=== PATIENT | female | born 1945 | race Caucasian/White ===

== ENCOUNTER 2016-06-21 08:07 | Day surgery (SDC) | payer OTHER ==
[2016-06-21] MEDS ORDERED: LIDOCAINE 2% MDV (20MG/ML) 20ML VIAL IV ONE (15:35)
[2016-06-21] MEDS ORDERED: PROPOFOL 10 MG/ML VIAL IV ONE (15:35)
--- NOTE | 2016-06-22 14:20 | Operative Note ---
DATE OF SURGERY: 06/21/2016 OPERATION: COLONOSCOPY to the cecum with cold biopsy forceps polypectomy x2. INDICATION: Episodic rectal bleeding. The patient reports that she has bright red rectal bleeding lasting approximately a day and a half. This occurs very infrequently. She has had this in the past and this was attributed to hemorrhoids years ago. She returns at this time for reevaluation via colonoscopy. ANESTHESIA: Intravenous sedation was administered by the department of anesthesiology and included Diprivan titrated to effect. PROCEDURE: Following informed consent from this alert individual including a discussion of the risks and benefits of the procedure and an opportunity for the patient to ask questions, the patient was in the left lateral decubitus position. A digital rectal examination was performed. No abnormalities were detected other than external hemorrhoids noted. Following this, the Olympus XVQ261 video colonoscope was inserted into the rectum without resistance. The rectal mucosa had a normal appearance with normal folds and distensibility. The colonoscope was advanced up through the colon to the level of the cecum without much difficulty. Throughout the bowel the mucosa appeared normal, the folds were normal, and the bowel was fairly well distensible. The colon preparation was good. The cecum was defined by noting the appendiceal orifice and ileocecal valve. Retroflexion in the cecum was endoscopically unremarkable. The endoscope was withdrawn. Again diverticulosis was noted in the sigmoid colon. No other changes were noted until the rectum was reached. Within the rectum, there were 2 diminutive distal rectal polyps noted measuring 2-3 mm in size. Each was removed with application of cold biopsy forceps. Retroflexion in the rectum revealed small internal hemorrhoids. The endoscope was then straightened and withdrawn. Moderate-sized external hemorrhoids were also noted. The instrument was removed. The patient tolerated the procedure well and was returned to the recovery area in stable condition. IMPRESSION: 1. Two diminutive rectal polyps removed with biopsy forceps. 2. Sigmoid diverticulosis. 3. Internal and external hemorrhoids. RECOMMENDATIONS: The patient was advised to use hemorrhoidal cream as needed if the bleeding should persist. She was also advised to continue to use MiraLax on a daily basis to facilitate soft stools. She can also use milk of magnesia if needed. Followup will be with Dr. Chuckie Garcia. As always, thank you for allowing me to participate in the care of your patient. Sal Ortiz DO CC: Priya JIM
== END 2016-06-21 09:00 | disposition home or self-care (01) ==
LOC: HOP 08:07
PROVIDERS: ATTEND Internal Medicine Gastroenterology
DX: K62.1 Rectal polyp (principal); I10 Essential (primary) hypertension; E78.00 Pure hypercholesterolemia, unspecified; M81.0 Age-related osteoporosis without current pathological fracture

== ENCOUNTER 2016-10-05 16:00 | Inpatient (IN) | payer OTHER ==
[2016-10-14] MEDS ORDERED: FAMOTIDINE 20MG TABLET PO ONE (06:00)
[2016-10-14] MEDS ORDERED: CEFAZOLIN 2 Gram 2 GM/50 ML BAG IVPB ONE (06:00)
[2016-10-14] MEDS ORDERED: CELECOXIB 100 MG CAPSULE PO ONE (06:00)
[2016-10-14] MEDS ORDERED: MECLIZINE 25 MG TABLET PO ONE (06:00)
[2016-10-14] MEDS ORDERED: ACETAMINOPHEN 1,000 MG/100 ML BTL IV ONE (06:00)
[2016-10-14] MEDS ORDERED: METOCLOPRAMIDE 10 MG TABLET PO ONE (06:00)
[2016-10-14] MEDS: IPRATROPIUM/ALBUTEROL (0.5MG/3MG) NEB INH PRN (11:34)
[2016-10-14] MEDS ORDERED: AL HYDROX/MAG HYDROX 30ML UD PO PRN (12:30)
[2016-10-14] MEDS ORDERED: METOCLOPRAMIDE HCL 10 MG/2 ML VIAL IVP PRN (12:30)
[2016-10-14] MEDS ORDERED: MAGNESIUM HYDROXIDE 30 ML UDC PO PRN (12:30)
[2016-10-14] MEDS ORDERED: SENNOSIDES/DOCUSATE SODIUM UD CAPSULE PO PRN (12:30)
[2016-10-14] MEDS ORDERED: OXYCODONE HCL 5 MG TABLET PO PRN (12:30)
[2016-10-14] MEDS ORDERED: TRAMADOL HCL 50 MG TABLET PO PRN (12:30)
[2016-10-14] MEDS: DIPHENHYDRAMINE HCL 25 MG CAPSULE PO PRN (12:34)
[2016-10-14] MEDS: RINGERS SOLUTION,LACTATED 1,000 ML IV SCH (12:34)
[2016-10-14] MEDS: OXYCODONE HCL 5 MG TABLET PO PRN ×2 (12:41→20:13)
[2016-10-14] MEDS ORDERED: TRANEXAMIC ACID 1,000 MG in 0.9 % SODIUM CHLORIDE 100ML 100 ML IVPB ONE (13:00)
[2016-10-14] MEDS: PATIENT OWN MED: RALOXIFENE 60 MG PO SCH (13:12)
[2016-10-14] MEDS: TRAMADOL HCL 50 MG TABLET PO PRN (13:55)
[2016-10-14] MEDS: ACETAMINOPHEN 1,000 MG/100 ML BTL IV SCH ×2 (14:32→21:30)
[2016-10-14] MEDS ORDERED: PROPOFOL 10 MG/ML VIAL IV ONE (15:06)
[2016-10-14] MEDS ORDERED: DIPHENHYDRAMINE HCL IV 50 MG/ML VIAL IVP ONE (15:06)
[2016-10-14] MEDS ORDERED: BUPIVACAINE 0.25% W/EPI MPF 30ML VIAL IVP ONE (15:06)
[2016-10-14] MEDS ORDERED: TRANEXAMIC ACID 1,000 MG/10 ML ML IV ONE (15:06)
[2016-10-14] MEDS ORDERED: MIDAZOLAM HCL 2MG/2ML VIAL IV ONE (15:06)
[2016-10-14] MEDS ORDERED: BUPIVACAINE LIPOSOME 266MG/20ML VIAL IV ONE (15:06)
[2016-10-14] MEDS ORDERED: FENTANYL PF 100MCG/2ML VIAL IV ONE (15:06)
[2016-10-14] MEDS ORDERED: LIDOCAINE 2% MDV (20MG/ML) 20ML VIAL IV ONE (15:06)
[2016-10-14] MEDS: ONDANSETRON HCL IV 4 MG/2 ML VIAL IVP PRN ×2 (15:51→20:13)
[2016-10-14] MEDS: HYDROMORPHONE HCL 1 MG/ML CPJ IVP PRN ×5 (15:51→21:20)
[2016-10-14] MEDS: CEFAZOLIN 2 Gram 2 GM/50 ML BAG IVPB SCH (16:41)
--- NOTE | 2016-10-14 18:36 | Rehab Evaluation ---
Patient Information - Patient Information Diagnosis: L TKA ON 10/14/16 Secondary to O-A. Ordered Treatment: PT Evaluate and Treat Status: Initial Evaluation Surgery: Yes (TKA-L 10/14/16) History: Detail (Progressive hx of knee pain with final dx of severe O-A.) Past Med/Aiden Hx Detail: Detail Past Medical/Surgical Hx: PAST MEDICAL/SURGICAL HISTORY Past Surgical History HYSTERECTOMY, LEFT FOOT X3, PMH - Respiratory Hx Respiratory Disorders Yes Hx Asthma No Hx Bronchitis Yes: none recently Hx Chronic Obstructive Yes: quit smoking 1990 Pulmonary Disease (COPD) Hx Dyspnea Yes Hx Pneumonia Yes: once years ago Hx Pulmonary Embolism No Hx Sleep Apnea No Hx Tuberculosis No Hx of CPAP No Hx of SOB Yes: just on exertion PMH - Cardiovascular Hx Cardiovascular Disorders Yes Hx Abnormal EKG No Hx Cardiac Catheterization No Hx Chest Pain No Hx Congestive Heart Failure No Hx Deep Vein Thrombosis No Hx Edema No Hx Heart Attack No Hx Hypertension Yes Hx Hypotension No Hx Irregular Heartbeat No Hx Palpitations No Hx Pacemaker/Defibrillator No Hx Vascular Disease No Exercise Tolerance Good Hx Transient Ischemic Attacks No (TIA) Comment: HIGH CHOLESTEROL PMH - Neuro Hx Neurological Disorders Yes Hx Brain Tumor No Hx Cerebrovascular Accident No Hx Dementia No Hx Dizziness Yes: vertigo with lying down Hx Headaches No Hx Neuropathy No Hx Parkinson's Disease No Hx Seizures No Hx Speech Problem No Hx Syncope No Hx Transient Ischemic Attacks No (TIA) Hx Weakness Yes: lt knee-gives out PMH - GI Hx Gastrointestinal Disorders Yes Hx Abdominal Pain No Hx Celiac Disease No Hx Crohn's Disease No Hx Diverticulitis No Hx Gastrointestinal Bleed No Hx Gastroesophageal Reflux No Hx Hepatitis/Jaundice No Hx Hiatal Hernia No Hx Irritable Bowel No Hx Liver Disease No Hx Nausea/Vomiting No Hx Obstructive Bowel No Hx Pancreatitis No Hx Rectal Bleeding Yes: hemmorrhoid Hx Ulcer No Hx Weight Loss/Weight Gain No Comment: constipation-takes Miralax PMH - Hx Genitourinary Disorders No PMH - Endocrine Hx Endocrine Disorders No PMH - Musculoskeletal Hx Musculoskeletal Disorders Yes Hx Arthritis Yes Hx Back Injury No Hx Fibromyalgia No Hx Gout No Hx Musculoskeletal Disease No Comment: BURSITIS LEFT HIP PMH - Psych Hx Psychiatric Problems No PMH - Hematology/Oncology Hx Hematology/Oncology Yes Disorders Hx Anemia No Hx Blood Disorders No Hx Bruising No Hx Cancer No Hx Chemotherapy No Hx Radiation Therapy No Hx Clotting Problems No Hx Sickle Cell Disease No Hx Unexplained Bleeding No Hx Blood Transfusion Reaction No Premorbid Status: Detail (No c/o limitations prior to the onset of this arthritis.) Social History: Detail (70 y/o female, lives in single family home 3-4 steps to enter [place] with rail on right going up then 2 steps to threshold of house. she reports they usually take her in from there with wheelchair.) Precautions: [place], Other (for joint replacement.) - Time With Patient Total Time Spent With Patient (Min): 55 Treatment Procedures: Detail (evaluation, bed mobility, transfers, total joint exercises,walker adjusted walker use education.) Subjective Information - Subjective Information Per Patient (pt is awake, alert, cooperative for evaluation. even with pain meds still in great del of pain and vomiting.) Objective Data - Pain Pain Present: Yes Pain Intensity: 8 Pain Scale Used: Numeric (1 - 10) - Mental Status Patient Orientation: Oriented x3 - Visual Perception Appears within normal limits for therapeutic activities - ROM Within normal limits (all joints except R knee. N/A secondary to surgery.) - Strength/Tone Within normal limits (all limbs except RLE) - Coordination Appears within normal limits for therapeutic activities - Bed Mobility Needs Assist (Secondary to surgery.) - Transfers Needs Assist (of walker and CG assist of two.) - Balance Balance Sitting: Good Balance Standing: Fair (with use of walker.) - Sensation Intact - Gait Detail (standing pivot transfer to comode.) - ADL's/IADL's Detail (N/A) - Special Tests No Therapy Assessment - Therapy Assessment Detail (Pain level initially interfered with PT once pt was given additional pain meds and antinausea meds she handled things better.) Patient Education - Patient Education Teaching Topic: Equipment Use, Precautions Response: Return Demonstration Teaching Method: Discussion, Demonstration Teaching Recipient: Patient Barriers To Learning: None Problem List - Problem List Physical Therapy Problem List: Detail (dependent mobility all areas (bed, transfers, ambulation).) Goals - Goals Physical Therapy Goals: Independent bed and transfer mobility with standard or 2ww, and ambulation with same, household and short community distances, level surfaces and stairs. Independent with beginning HEP and knee precautions reguarding knee care/safty. Prognosis - Prognosis Good Plan - Plan Physical Therapy Plan: PT X 1 OP DAY, 2 X 1st POSTOP DAY AND IF NEEDED 1 ADDITIONAL VISIT POSTOP DAY 2(if needed to achieve goals)PRIOR TO DISCHARGE.
[2016-10-14] MEDS: POLYETHYLENE GLY 17 GM PACKET PO SCH (21:25)
[2016-10-14] MEDS: ASPIRIN 325 MG TAB ENTERIC-COATED PO SCH (21:26)
[2016-10-14] MEDS: METOPROLOL SUCCINATE 25 MG PO SCH (21:27)
[2016-10-14] MEDS: PATIENT OWN MED: PRAVASTATIN 40 MG PO SCH (21:27)
[2016-10-15] MEDS: HYDROMORPHONE HCL 1 MG/ML CPJ IVP PRN ×4 (01:15→07:47)
[2016-10-15] MEDS: OXYCODONE HCL 5 MG TABLET PO PRN ×2 (01:20→07:45)
[2016-10-15] MEDS: CEFAZOLIN 2 Gram 2 GM/50 ML BAG IVPB SCH ×2 (01:25→09:23)
[2016-10-15] MEDS: ACETAMINOPHEN 1,000 MG/100 ML BTL IV SCH (03:19)
[2016-10-15] MEDS: DIPHENHYDRAMINE HCL 25 MG CAPSULE PO PRN (03:45)
[2016-10-15 06:23] LABS: HEMATOCRIT 42.1 % (35.0-47.0); HEMOGLOBIN 13.7 gm/dl (11.6-16.0); MEAN CELL VOLUME 98.4 fl (81-97); MEAN CORPUSCULAR HGB CONC 32.5 g/dl (32-36); MEAN PLATELET VOLUME 11.3 fl (7.4-10.4); PLATELET COUNT 186 K/uL (130-400); RED BLOOD COUNT 4.28 M/uL (3.80-5.40); RED CELL DISTRIBUTION WIDTH 12.6 % (11.5-14.5); WHITE BLOOD COUNT W/O DIFF 12.6 K/uL (4.2-12.2)
--- NOTE | 2016-10-15 09:18 | Rehab Evaluation ---
Patient Information - Patient Information Diagnosis: L TKA ON 10/14/16 Secondary to O-A. Ordered Treatment: OT Evaluate and Treat Status: Initial Evaluation Surgery: Yes (TKA-L 10/14/16) History: Detail (Progressive hx of knee pain with final dx of severe O-A.) Past Med/Aiden Hx Detail: Detail Past Medical/Surgical Hx: PAST MEDICAL/SURGICAL HISTORY Past Surgical History HYSTERECTOMY, LEFT FOOT X3, PMH - Respiratory Hx Respiratory Disorders Yes Hx Asthma No Hx Bronchitis Yes: none recently Hx Chronic Obstructive Yes: quit smoking 1990 Pulmonary Disease (COPD) Hx Dyspnea Yes Hx Pneumonia Yes: once years ago Hx Pulmonary Embolism No Hx Sleep Apnea No Hx Tuberculosis No Hx of CPAP No Hx of SOB Yes: just on exertion PMH - Cardiovascular Hx Cardiovascular Disorders Yes Hx Abnormal EKG No Hx Cardiac Catheterization No Hx Chest Pain No Hx Congestive Heart Failure No Hx Deep Vein Thrombosis No Hx Edema No Hx Heart Attack No Hx Hypertension Yes Hx Hypotension No Hx Irregular Heartbeat No Hx Palpitations No Hx Pacemaker/Defibrillator No Hx Vascular Disease No Exercise Tolerance Good Hx Transient Ischemic Attacks No (TIA) Comment: HIGH CHOLESTEROL PMH - Neuro Hx Neurological Disorders Yes Hx Brain Tumor No Hx Cerebrovascular Accident No Hx Dementia No Hx Dizziness Yes: vertigo with lying down Hx Headaches No Hx Neuropathy No Hx Parkinson's Disease No Hx Seizures No Hx Speech Problem No Hx Syncope No Hx Transient Ischemic Attacks No (TIA) Hx Weakness Yes: lt knee-gives out PMH - GI Hx Gastrointestinal Disorders Yes Hx Abdominal Pain No Hx Celiac Disease No Hx Crohn's Disease No Hx Diverticulitis No Hx Gastrointestinal Bleed No Hx Gastroesophageal Reflux No Hx Hepatitis/Jaundice No Hx Hiatal Hernia No Hx Irritable Bowel No Hx Liver Disease No Hx Nausea/Vomiting No Hx Obstructive Bowel No Hx Pancreatitis No Hx Rectal Bleeding Yes: hemmorrhoid Hx Ulcer No Hx Weight Loss/Weight Gain No Comment: constipation-takes Miralax PMH - Hx Genitourinary Disorders No PMH - Endocrine Hx Endocrine Disorders No PMH - Musculoskeletal Hx Musculoskeletal Disorders Yes Hx Arthritis Yes Hx Back Injury No Hx Fibromyalgia No Hx Gout No Hx Musculoskeletal Disease No Comment: BURSITIS LEFT HIP PMH - Psych Hx Psychiatric Problems No PMH - Hematology/Oncology Hx Hematology/Oncology Yes Disorders Hx Anemia No Hx Blood Disorders No Hx Bruising No Hx Cancer No Hx Chemotherapy No Hx Radiation Therapy No Hx Clotting Problems No Hx Sickle Cell Disease No Hx Unexplained Bleeding No Hx Blood Transfusion Reaction No Premorbid Status: Detail (No c/o limitations prior to the onset of this arthritis. 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 she reports family usually takes her in from there with wheelchair. Pt has her son and [id number] living with her who will be available to assist as needed and provide meals.) Precautions: [place], Other (for joint replacement.) - Time With Patient Total Time Spent With Patient (Min): 15 Treatment Procedures: Detail (OT eval LOW) Subjective Information - Subjective Information Per Patient Objective Data - Pain Pain Present: Yes Pain Intensity: 2 (L knee) Pain Scale Used: Numeric (1 - 10) - Mental Status Patient Orientation: Oriented x3 - Visual Perception Appears within normal limits for therapeutic activities - ROM Within normal limits (BUE's) - Strength/Tone Within normal limits (BUE's grossly 4+ to 5/5.) - Coordination Appears within normal limits for therapeutic activities - ADL's/IADL's Detail (Discussed wrapping techniques to L knee to prevent water saturation to surgical site during showering. Pt verbalized understanding. Pt has a shower bench. She will sponge bath for the first few days. Pt falling asleep during eval and not wanting to dress at this time. Discussed equipment available should she have difficulty don/doff pants/underpants due to limited ROM L knee. Pt will contact OT should she have any questions.) Therapy Assessment - Therapy Assessment Detail (Pt falling asleep during eval. Pt able to verbalize understanding of dressing and bathing techniques. She will contact OT if any questions arise in the futher. No futher inpatient OT anticipated at this time.) Patient Education - Patient Education Teaching Topic: Equipment Use, Precautions Response: Verbalize Understanding Teaching Method: Discussion Teaching Recipient: Patient Barriers To Learning: None Problem List - Problem List Physical Therapy Problem List: Detail (dependent mobility all areas (bed, transfers, ambulation).) Goals - Goals Physical Therapy Goals: Independent bed and transfer mobility with standard or 2ww, and ambulation with same, household and short community distances, level surfaces and stairs. Independent with beginning HEP and knee precautions reguarding knee care/safty. Prognosis - Prognosis Good Plan - Plan Physical Therapy Plan: PT X 1 OP DAY, 2 X 1st POSTOP DAY AND IF NEEDED 1 ADDITIONAL VISIT POSTOP DAY 2(if needed to achieve goals)PRIOR TO DISCHARGE. Occupational Therapy Plan: No further inpatient OT anticipated at this time.
[2016-10-15] MEDS: RINGERS SOLUTION,LACTATED 1,000 ML IV SCH ×2 (10:31→23:21)
[2016-10-15] MEDS: ACYCLOVIR 400 MG PO SCH (11:47)
[2016-10-15] MEDS: ASPIRIN 325 MG TAB ENTERIC-COATED PO SCH ×2 (11:47→23:25)
[2016-10-15] MEDS: AMLODIPINE PO SCH (11:48)
[2016-10-15] MEDS: BENAZEPRIL PO SCH (11:48)
[2016-10-15] MEDS: PATIENT OWN MED: RALOXIFENE 60 MG PO SCH (11:51)
[2016-10-15] MEDS: METOPROLOL SUCCINATE 25 MG PO SCH ×2 (11:51→23:25)
[2016-10-15] MEDS: OXYCODONE/APAP 7.5MG/325MG TABLET PO PRN ×2 (11:53→20:07)
--- NOTE | 2016-10-15 12:23 | Physical Therapy Tx Note ---
Physical Therapy Tx Note - Treatment Note Tolerated: Good (Pt. expressed 5/10 pain to start tx. Pt. tolerated treatment poorly and was unable to I transfer and perform bed mobility secondary to pain.) Total Time Spent With Patient: 60 Physical Therapy Tx Note: Detail (Pt. required max assist x2 with sit to stand and stand to sit transfer. She required max assist x1 with supine to seated transfer. Pt. could not independently stand and requested to sit after ~1 minute of standing. Pt. required constant verbal and tactile cues to appropriately position her upper and lower extremities during transfers with front wheeled walker. Pt. was unable to ambulate in the hallway. Pt. transferred to a commode and was left reclined in a chair at end of tx. PT performed heel slides and quad sets while supine 10x each.) Physical Therapy Problem List: Detail (dependent mobility all areas (bed, transfers, ambulation).) Physical Therapy Goals: Independent bed and transfer mobility with standard or 2ww, and ambulation with same, household and short community distances, level surfaces and stairs. Independent with beginning HEP and knee precautions reguarding knee care/safty. Prognosis: Moderate (Pt. was not able to be assessed for ambulation and stairs, but she does require max assist x2 for sit<->stand transfers.) Physical Therapy Plan: PT X 1 OP DAY, 2 X 1st POSTOP DAY AND IF NEEDED 1 ADDITIONAL VISIT POSTOP DAY 2(if needed to achieve goals)PRIOR TO DISCHARGE.
[2016-10-15] MEDS ORDERED: HYDROCODONE/APAP 7.5/325MG TABLET PO PRN (12:30)
[2016-10-15] MEDS ORDERED: OXYCODONE/APAP 7.5MG/325MG TABLET PO PRN (12:30)
[2016-10-15] MEDS ORDERED: ACETAMINOPHEN 325 MG TAB PO PRN (12:30)
--- NOTE | 2016-10-15 15:41 | Physical Therapy Tx Note ---
Physical Therapy Tx Note - Treatment Note Tolerated: Poor (Pt. declined PT at P.M. session due to discomfort and pain. Pt. agrees to stay overnight and be assessed 10-16-16 for inpatient PT goal completion.) Total Time Spent With Patient: 5 Physical Therapy Tx Note: Detail (Treatment deferred.) Physical Therapy Problem List: Detail (dependent mobility all areas (bed, transfers, ambulation).) Physical Therapy Goals: Independent bed and transfer mobility with standard or 2ww, and ambulation with same, household and short community distances, level surfaces and stairs. Independent with beginning HEP and knee precautions reguarding knee care/safty. Physical Therapy Plan: PT X 1 OP DAY, 2 X 1st POSTOP DAY AND IF NEEDED 1 ADDITIONAL VISIT POSTOP DAY 2(if needed to achieve goals)PRIOR TO DISCHARGE.
[2016-10-15] MEDS: TRAMADOL HCL 50 MG TABLET PO PRN (16:10)
[2016-10-15] MEDS ORDERED: HYDROMORPHONE HCL 1MG/ML **SYRINGE IVP PRN (16:15)
[2016-10-15] MEDS: ZOLPIDEM TARTRATE 5 MG TABLET PO PRN (23:25)
[2016-10-15] MEDS: POLYETHYLENE GLY 17 GM PACKET PO SCH (23:25)
[2016-10-15] MEDS: PATIENT OWN MED: PRAVASTATIN 40 MG PO SCH (23:25)
[2016-10-16] MEDS: OXYCODONE/APAP 7.5MG/325MG TABLET PO PRN (02:20)
[2016-10-16 06:13] LABS: HEMATOCRIT 38.2 % (35.0-47.0); HEMOGLOBIN 12.6 gm/dl (11.6-16.0); MEAN CELL VOLUME 98.7 fl (81-97); MEAN CORPUSCULAR HEMOGLOBIN 32.6 pg (27-33); MEAN PLATELET VOLUME 11.1 fl (7.4-10.4); PLATELET COUNT 180 K/uL (130-400); RED BLOOD COUNT 3.87 M/uL (3.80-5.40); RED CELL DISTRIBUTION WIDTH 12.5 % (11.5-14.5); WHITE BLOOD COUNT W/O DIFF 13.3 K/uL (4.2-12.2)
[2016-10-16] MEDS: ASPIRIN 325 MG TAB ENTERIC-COATED PO SCH ×2 (09:50→22:06)
[2016-10-16] MEDS: ACYCLOVIR 400 MG PO SCH (09:51)
[2016-10-16] MEDS: BENAZEPRIL PO SCH ×2 (09:51→09:56)
[2016-10-16] MEDS: AMLODIPINE PO SCH ×2 (09:51→09:56)
[2016-10-16] MEDS: PATIENT OWN MED: RALOXIFENE 60 MG PO SCH (09:52)
[2016-10-16] MEDS: METOPROLOL SUCCINATE 25 MG PO SCH ×2 (09:52→22:06)
[2016-10-16] MEDS: IPRATROPIUM/ALBUTEROL (0.5MG/3MG) NEB INH PRN (10:29)
--- NOTE | 2016-10-16 12:22 | Physical Therapy Tx Note ---
Physical Therapy Tx Note - Treatment Note Physical Therapy Tx Note: Detail (Pt unable to be seen today in the a.m. due to being tested and treated by respiratory therapy.) Physical Therapy Problem List: Detail (dependent mobility all areas (bed, transfers, ambulation).) Physical Therapy Goals: Independent bed and transfer mobility with standard or 2ww, and ambulation with same, household and short community distances, level surfaces and stairs. Independent with beginning HEP and knee precautions reguarding knee care/safty. Physical Therapy Plan: PT X 1 OP DAY, 2 X 1st POSTOP DAY AND IF NEEDED 1 ADDITIONAL VISIT POSTOP DAY 2(if needed to achieve goals)PRIOR TO DISCHARGE.
--- NOTE | 2016-10-16 15:11 | Physical Therapy Tx Note ---
Physical Therapy Tx Note - Treatment Note Tolerated: Fair Total Time Spent With Patient: 65 Physical Therapy Tx Note: Detail (Pt was supine in bed upon arrival. reevaluated this a.m. and instructed Pt. that if she wasn't able to complete ex' s and transfer then she would be discharged to alf or rehab facility. Pt. was eager to try to complete ex's and transfers. Pt completed ex's of heel slides, quad sets, glute sets, ankle pumps all x 10 each. Pt transferred with min to mod assist x 2 to edge of bed. Transferred to standing with mod assist x 2. Pt transferred with front wheeled walker to bedside commode and completed self care after void of bladder. Pt transferred back to bed with mod assist x 2 with improved bed mobility with use of trap. Pt returned to ice and leg adjusted in CPM. With ROM of 0 degrees extension to 60 degrees flexion. Pt stephanie well and states " I actually feel a little less pain and better after getting up." Pt is to stay in hospital tonight to get breathing issues cleared and to have PT in the a.m. tomorrow.) Physical Therapy Problem List: Detail (dependent mobility all areas (bed, transfers, ambulation).) Physical Therapy Goals: Independent bed and transfer mobility with standard or 2ww, and ambulation with same, household and short community distances, level surfaces and stairs. Independent with beginning HEP and knee precautions reguarding knee care/safty. Prognosis: Moderate Physical Therapy Plan: PT X 1 OP DAY, 2 X 1st POSTOP DAY AND IF NEEDED 1 ADDITIONAL VISIT POSTOP DAY 2(if needed to achieve goals)PRIOR TO DISCHARGE.
[2016-10-16] MEDS: TRAMADOL HCL 50 MG TABLET PO PRN ×2 (15:12→23:39)
[2016-10-16] MEDS: RINGERS SOLUTION,LACTATED 1,000 ML IV SCH (18:01)
[2016-10-16] MEDS: POLYETHYLENE GLY 17 GM PACKET PO SCH (22:06)
[2016-10-16] MEDS: PATIENT OWN MED: PRAVASTATIN 40 MG PO SCH (22:06)
[2016-10-17 07:47] LABS: HEMATOCRIT 39.2 % (35.0-47.0); HEMOGLOBIN 12.6 gm/dl (11.6-16.0); MEAN CELL VOLUME 99.7 fl (81-97); MEAN CORPUSCULAR HEMOGLOBIN 32.1 pg (27-33); MEAN CORPUSCULAR HGB CONC 32.1 g/dl (32-36); MEAN PLATELET VOLUME 11.2 fl (7.4-10.4); PLATELET COUNT 205 K/uL (130-400); RED BLOOD COUNT 3.93 M/uL (3.80-5.40); RED CELL DISTRIBUTION WIDTH 12.1 % (11.5-14.5)
--- NOTE | 2016-10-17 11:31 | Physical Therapy Tx Note ---
Physical Therapy Tx Note - Treatment Note Tolerated: Fair Total Time Spent With Patient: 40 Physical Therapy Tx Note: Detail (Pt was sitting in recliner with chair reclined and legs elevated with ice applied to left knee. Pt states has been up since 7:30 this a.m. Pt also states feeling very weak and tired. Pt required mod assist x 1 to straighten chair and lower legs to floor. Pt required min assist x 1 to transfer sit to stand but does require time to get to that position on her own. Pt transferred with contact guard assist x 1 to sit at commode next to chair. Pt had improved with transition and was able to lower to commode with min assist. Pt did require assist to lower undergarment and self care due to position on commode. Pt transferred to stand and was assisted to raise undergarments, Pt then ambulated with front wheeled walker to bed x 8 ft. with contact guard assist x 2 for safety. Pt stand to sit at edge of bed with verbal cueing for positioning. Pt required mod assist x 1 to raise surgical leg onto bed but was able to complete all bed mobility independently with trap bar above bed. Pt returned to supine position, ice was applied to knee and compression garments reattached. Pt was given call button and bedside table. Pt shows improvement in bed mobility and transfers. Pt is eager to be released to home and not retirement. Pt states is motivated to improve. to reeval this afternoon. Await notice if to be discharged this afternoon.) Physical Therapy Problem List: Detail (dependent mobility all areas (bed, transfers, ambulation).) Physical Therapy Goals: Independent bed and transfer mobility with standard or 2ww, and ambulation with same, household and short community distances, level surfaces and stairs. Independent with beginning HEP and knee precautions reguarding knee care/safty. Prognosis: Moderate Physical Therapy Plan: PT X 1 OP DAY, 2 X 1st POSTOP DAY AND IF NEEDED 1 ADDITIONAL VISIT POSTOP DAY 2(if needed to achieve goals)PRIOR TO DISCHARGE.
[2016-10-17] MEDS: RINGERS SOLUTION,LACTATED 1,000 ML IV SCH (12:30)
[2016-10-17] MEDS: TRAMADOL HCL 50 MG TABLET PO PRN ×3 (12:32→23:59)
[2016-10-17] MEDS: ASPIRIN 325 MG TAB ENTERIC-COATED PO SCH ×2 (12:36→21:15)
[2016-10-17] MEDS: ACYCLOVIR 400 MG PO SCH (12:37)
[2016-10-17] MEDS: AMLODIPINE PO SCH ×3 (12:38→21:18)
[2016-10-17] MEDS: METOPROLOL SUCCINATE 25 MG PO SCH ×2 (12:38→21:17)
[2016-10-17] MEDS: BENAZEPRIL PO SCH ×3 (12:38→21:18)
[2016-10-17] MEDS: PATIENT OWN MED: RALOXIFENE 60 MG PO SCH (12:39)
--- NOTE | 2016-10-17 14:10 | Physical Therapy Tx Note ---
Physical Therapy Tx Note - Treatment Note Tolerated: Fair Total Time Spent With Patient: 40 Physical Therapy Tx Note: Detail (Pt was supine in bed resting upon arrival and states that she is still very fatigued from activity this a.m. Pt completed ther ex of heel slides, quad sets, ankle pumps, glute sets all x 10. Bed mobility from supine to sit at edge of bed with mod assist x1. Pt was able to do pivot transfer with front wheeled walker to commode. Pt was unable to complete self care due to positioning on commode. Pt was able to stand independently with walker. Required assist to pull up and down undergarments. Pt transferred to bed with min assist x 1 and completed bed mobility to reposition independently. Pt was visibly fatigued after treatment and states that knee pain had increased some. Pt was returned to o2 and ice applied to left knee. Pt. was given call button and bedside table. Pt to be reassessed by PT tomorrow for possible transfer to rehab facility as per Dr. Bonner.) Physical Therapy Problem List: Detail (dependent mobility all areas (bed, transfers, ambulation).) Physical Therapy Goals: Independent bed and transfer mobility with standard or 2ww, and ambulation with same, household and short community distances, level surfaces and stairs. Independent with beginning HEP and knee precautions reguarding knee care/safty. Prognosis: Moderate Physical Therapy Plan: PT X 1 OP DAY, 2 X 1st POSTOP DAY AND IF NEEDED 1 ADDITIONAL VISIT POSTOP DAY 2(if needed to achieve goals)PRIOR TO DISCHARGE.
[2016-10-17] MEDS: POLYETHYLENE GLY 17 GM PACKET PO SCH (21:17)
[2016-10-17] MEDS: PATIENT OWN MED: PRAVASTATIN 40 MG PO SCH (21:17)
[2016-10-18] MEDS: RINGERS SOLUTION,LACTATED 1,000 ML IV SCH (00:01)
--- NOTE | 2016-10-18 07:29 | CT ANGIOGRAM REPORT ---
EXAM: CTA OF THE CHEST HISTORY: ABNORMAL OXYGEN SATURATION. TECHNIQUE: CTA of the chest was performed following IV administration of 100 ml of Omnipaque 350 contrast. Axial images were obtained with coronal and sagittal MIP reconstructions. Comparison: None. FINDINGS: The mediastinal vasculature enhances normally. There is no intraluminal filling defect to suggest pulmonary embolus. Negative for thoracic aortic aneurysm or dissection. Cardiomegaly. Limited evaluation of the upper abdomen shows diffuse fatty infiltrative change to the liver. Nodularity of the right adrenal gland measuring 1.3 x 1.0 cm, likely relating to adenoma. The osseous structures are grossly intact. No pneumothorax. The visualized airways are patent. Minor consolidative changes with subsegmental atelectasis in each lung base. No effusion. The lungs are otherwise clear. No mediastinal or hilar adenopathy. IMPRESSION: 1. NEGATIVE FOR PULMONARY EMBOLUS, THORACIC AORTIC ANEURYSM, OR DISSECTION. 2. CARDIOMEGALY. 3. FATTY INFILTRATIVE CHANGE TO THE LIVER. 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 4. NOT STATED PREVIOUSLY, THERE IS A SOMEWHAT LOBULATED APPEARANCE TO THE LEFT KIDNEY. THIS WAS INCOMPLETELY IMAGED ON TODAY'S EXAM. CORRELATE WITH RENAL FUNCTION. COULD CONSIDER FURTHER ASSESSMENT WITH DEDICATED CT OR MRI OF THE ABDOMEN. 5. SUBSEGMENTAL ATELECTASIS AND MINOR CONSOLIDATIVE CHANGE IN EACH LUNG BASE. JOB NUMBER: [id number] [facility]
[2016-10-18] MEDS: TRAMADOL HCL 50 MG TABLET PO PRN (08:11)
[2016-10-18] MEDS: ONDANSETRON HCL IV 4 MG/2 ML VIAL IVP PRN (09:22)
[2016-10-18] MEDS: ASPIRIN 325 MG TAB ENTERIC-COATED PO SCH ×2 (10:29→21:32)
[2016-10-18] MEDS: METOPROLOL SUCCINATE 25 MG PO SCH ×2 (10:32→21:33)
[2016-10-18] MEDS: ACYCLOVIR 400 MG PO SCH (10:32)
[2016-10-18] MEDS: PATIENT OWN MED: RALOXIFENE 60 MG PO SCH (10:32)
--- NOTE | 2016-10-18 13:07 | Physical Therapy Tx Note ---
Physical Therapy Tx Note - Treatment Note Tolerated: Good (Pt. reported nausea and pain to start tx. Pt. requested ~30 minutes rest prior to starting tx.) Total Time Spent With Patient: 60 Physical Therapy Tx Note: Detail (PT instructed pt. to perform pursed lip breathing and diaphragmatic breathing to assist with respiration and feelings of dizziness. Pt. performed sit<->stand transfer independently with CGA. Pt. ambulated ~8-10 feet with front wheeled walker. Pt. requested to sit after 8-10 feet of ambulation and declined stair training/assessment due to apprehension and exhaustion. Pt. remained at 93% O2 sat while seated without oxygen, she dropped to 85% O2 sat following gait training. She was able to raise her resting O2 sat to ~94% following breathing exercises. Pt. was left seated with B IPC, cryo LLE, call light available, and nursing was notified of pt.'s status. ) Physical Therapy Problem List: Detail (dependent mobility all areas (bed, transfers, ambulation).) Physical Therapy Goals: Independent bed and transfer mobility with standard or 2ww, and ambulation with same, household and short community distances, level surfaces and stairs. Independent with beginning HEP and knee precautions reguarding knee care/safty. Prognosis: Moderate Physical Therapy Plan: ABHISHEK recommended following inpatient PT for continued care to improve ambulation, stair use, and overall safety awareness/endurance before returning to home environment.
[2016-10-18] MEDS: POLYETHYLENE GLY 17 GM PACKET PO SCH (21:33)
[2016-10-18] MEDS: PATIENT OWN MED: PRAVASTATIN 40 MG PO SCH (21:33)
[2016-10-18] MEDS: BENAZEPRIL PO SCH (21:34)
[2016-10-18] MEDS: AMLODIPINE PO SCH (21:34)
[2016-10-18] MEDS: HYDROCODONE/APAP 7.5/325MG TABLET PO PRN (22:27)
[2016-10-18] MEDS: ZOLPIDEM TARTRATE 5 MG TABLET PO PRN (22:28)
[2016-10-19] MEDS: HYDROCODONE/APAP 7.5/325MG TABLET PO PRN (09:29)
[2016-10-19] MEDS: ASPIRIN 325 MG TAB ENTERIC-COATED PO SCH (09:29)
[2016-10-19] MEDS: ACYCLOVIR 400 MG PO SCH (09:32)
[2016-10-19] MEDS: METOPROLOL SUCCINATE 25 MG PO SCH (09:32)
[2016-10-19] MEDS: PATIENT OWN MED: RALOXIFENE 60 MG PO SCH (09:33)
--- NOTE | 2016-10-19 10:46 | Physical Therapy Tx Note ---
Physical Therapy Tx Note - Treatment Note Tolerated: Good Total Time Spent With Patient: 30 Physical Therapy Tx Note: Detail (The patient was up in chair when PT arrived. The patient reported her L knee pain was level 7 at the highest this am. The patient achieved sit to stand from recliner with CG of 1. The patient ambulated 15 feet x 1, 13 feet x 2 with wheeled walker with CG of 1 for safety WBAT on L LE and maximal verbal cueing for deep breathing techniques. The patient acheived toilet transfer with CG/supervision of 1 for safety . The patient handled pants pulling up and down pants independently. The patient returned to recliner.Ice pace was placed on knee and call light was within reach.) Physical Therapy Problem List: Detail (dependent mobility all areas (bed, transfers, ambulation).) Physical Therapy Goals: Independent bed and transfer mobility with standard or 2ww, and ambulation with same, household and short community distances, level surfaces and stairs. Independent with beginning HEP and knee precautions reguarding knee care/safty. Physical Therapy Plan: ABHISHEK recommended following inpatient PT for continued care to improve ambulation, stair use, and overall safety awareness/endurance before returning to home environment.
[2016-10-19] MEDS: OXYCODONE/APAP 7.5MG/325MG TABLET PO PRN (10:52)
--- NOTE | 2016-10-19 11:41 | Discharge Summary ---
DATE OF ADMISSION: 10/14/2016 DATE OF DISCHARGE: 10/18/2016 ADMITTING DIAGNOSIS: Osteoarthritis of the left knee. DISCHARGE DIAGNOSIS: Osteoarthritis of the left knee. OPERATIVE PROCEDURE: Elective left total knee arthroplasty. DESCRIPTION: This 70-year-old female was admitted to the hospital for elective total knee arthroplasty and made very poor progress with physical therapy. She had some problems with hypoxemia and the patient was I think probably taking too many narcotics and was not really taking deep breaths. She was not using her incentive spirometry. We discontinued the narcotics and switched her over to Ultram and she made much better progress with the patient at O2 on room air with 87% saturation on 10/17/2016. The patient was really not cooperating with the rehab program and is not able to take care of herself at home. She is not safe for discharge home, so she will be transferred to a subacute rehab unit. The patient will continue on aspirin 325 mg twice a day until she is seen in the clinic on 10/28/2016 and routine wound care instructions were given. She will wear her ANDRÉS hose during the day and remove them at night. Should she have any problems prior to being seen, she was instructed to call my office. JHOANA
--- NOTE | 2016-10-19 11:41 | Operative Note ---
DATE OF SURGERY: 10/14/2016 Surgeon: Ismael Rader DO Referring physician: Chuckie Garcia DO PREOPERATIVE DIAGNOSIS: Primary osteoarthritis of the left knee. POSTOPERATIVE DIAGNOSIS: Primary osteoarthritis of the left knee. OPERATION: Left total knee arthroplasty. Anesthesia: General. PROCEDURE: This 70-year-old female was taken to the operating room and placed in the supine position on the operating room table after spinal anesthesia was induced by the Department of Anesthesia. The left lower extremity was elevated and prepped with Hibiclens and draped in the usual sterile fashion. It was exsanguinated and the tourniquet inflated to 300 mmHg. All scrubbed personnel wore personal isolation suits. An anterior longitudinal midline incision was made, followed by a medial parapatellar arthrotomy incision. The intracondylar drill hole was made for the intramedullary alignment randall and a 10 mm 5 degree valgus cut was made in the distal femur. The wafer of bone removed. The patient had mild flexor contracture of about 5 degrees. The left leg was flexed, a sizing jig was affixed. A size 70 was seen to be the appropriate size in the anterior posterior dimension, however it was only a 65 in the medial lateral direction; therefore, it was necessary to compromise to get a well-fitting prosthetic device and the 67.5 4-in-1 cutting block was then pinned in 3 degrees of external rotation with the pin sites moved 2 mm anteriorly. The cut was then made and the wafers of bone were removed. We then directed our attention to the proximal tibia. An extramedullary alignment guide was used to cut the proximal tibia and we referenced a 10 mm cut off the lateral tibial plateau, but this was not seen to be quite enough. An additional 2 mm was taken and once the appropriate alignment had been assured, a 3 degree posterior slope cut was made in the proximal tibia and the wafer of bone was removed. Remnants of the menisci and osteophytes were removed from the posterior aspect of the knee. With the remnants of the menisci taken out, we were able to see the margins extremely well and a size 75 tibial base plate was seen to be the appropriate size. The stem punch was subsequently used. We then cut the patella and restored it to anatomic height with the trial and the trial components were then inserted and the 10 mm bearing seemed to be slightly too loose and therefore an 11 was placed, which gave us excellent stability throughout the range of motion. No instability of the patellofemoral joint was noted either. The 7.8 mm patella trial was used, as the 10 mm was actually too thick. All trial components were then removed and the wound copiously irrigated with pulse lavage lactated Ringer's solution. Exparel was injected into the posterior medial and lateral corners of the joint and all bony surfaces were dried, all components were cemented into place and excess cement removed after the insertion of each component. Initially, the 75 tibial base plate was cemented, followed by the insertion of the tibial bearing, followed by the femur and the patella. Once the cement had hardened, the knee was again taken through range of motion and found to be stable. The remainder of the Exparel was injected into the periosteum and joint capsule, the proximal tibia, and distal femur and the drain placed through a separate stab incision. The arthrotomy incision was closed with a 2 Vicryl, the subcutaneous tissue closed with 0 Vicryl. The skin was stapled. Polar Care applied. The patient taken to the recovery room in satisfactory condition. GROSS PATHOLOGY: This patient demonstrated full-thickness articular cartilage loss noted in the medial compartment with a full-thickness defect noted in the medial femoral condyle and severe grade 3 changes noted on the tibia, grade 2 changes noted in the lateral compartment. The patella also demonstrated severe grade 4 changes with full-thickness loss there as well. The final components inserted were: A [employer] V[employer]ard 67.5 cruciate retaining femoral component, 75 tibial base plate, an 11mm anterior stabilized E1 bearing, and a 34 x 7.8 mm patella was used. JHOANA
== END 2016-10-19 13:16 | DRG 470 ==
LOC: MEDSURG 10-14 07:58
PROVIDERS: ADMIT Orthopaedic Surgery; ATTEND Orthopaedic Surgery
PROC: 0SRD0J9 Replacement of Left Knee Joint with Synthetic Substitute, Cemented, Open Approach (ICD-10-PCS; principal; 2016-10-14 09:30)
DX: M17.12 Unilateral primary osteoarthritis, left knee (principal); I10 Essential (primary) hypertension; E78.00 Pure hypercholesterolemia, unspecified
CPT/HCPCS: 71275; 82565; 84520; 85025; 93005; 93010; 94640; 94760; 94761; 97110; 97116; 97165; 97530; J1170; J1200; J2405; J7120